=== PATIENT | male | born 1965 | race Caucasian/White ===

== ENCOUNTER 2024-06-17 10:03 | Day surgery (SDC) | payer SELFPAY, OTHER ==
[2024-06-17] VITALS (7 sets, daily range): BP systolic 113–163; BP diastolic 68–97; PULSE 53–61; RESP 16; TEMP 36.2–36.9; O2SAT 94–99; BMI 31.1
--- NOTE | 2024-06-17 10:41 | EKG12_ITS ---
Test Reason : P Blood Pressure : */* mmHG Vent. Rate : 57 BPM Atrial Rate : 57 BPM P-R Int : 164 ms QRS Dur : 104 ms QT Int : 410 ms P-R-T Axes : 7 10 16 degrees QTcB Int : 399 ms Sinus bradycardia Otherwise normal ECG No previous ECGs available Confirmed by AURELIANO COLORADO, ESPINOZA ([id number]), editorial specialist RANGEL ZUNIGA ([id number]) on 06/20/2024 6:25:24 AM Referred By: Jayjay Grubbs Confirmed By: ESPINOZA BEDOYA MD
--- NOTE | 2024-06-17 10:54 | PRE.ANES_ITS ---
ASA Classification* ASA Classification ASA Classification: 2 Assessment & Plan Anesthesia* Anesthesia Assessment Anesthesia Assessment: Discussed sedation and/or anesthesia options, risks, benefits, and alternatives with patient/parents/legal guardian/POA. Questions invited. The patient/parents/legal guardian/POA seems to understand and agrees to proceed with anesthesia plan. Reviewed the physical assessment, medical history, allergy history and patient home medications list prior to surgery/procedure/anesthetic and documented any changes. Performed airway and anesthesia risk assessments. 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 When Was Last Pacemaker Check QUESTION #4 FULL TEXT: You/Your Family Experience fever (hyperthermia) with Anesthesia Last Oral Intake Last Oral intake: Last Oral Intake NPO since Meds taken in AM with sips of water? Meds patient instructed to take am of surgery PONV PONV - battery assembler dry cell: PONV - battery assembler dry cell Female No 06/05/24 15:00 HX of Motion Sickness Yes 06/05/24 15:00 HX of N/V After Surgery No 06/05/24 15:00 Non-Smoker Yes 06/05/24 15:00 Duration of Surgery greater No 06/05/24 15:00 than 60 minutes Number of Risk Factors 2 06/05/24 15:00 PONV Score Moderate Risk 06/05/24 15:00 Height & Weight Height & Weight: Anesthesia: Height & Weight Height 5 ft 7 in 06/14/24 08:06 Weight: 90.265 kg 06/14/24 08:06 Respiratory Assessment Respiratory Assessment - battery assembler dry cell: Respiratory Tract Infection Hx - battery assembler dry cell Hx Respiratory Tract Infection No 06/05/24 15:00 STOP Sleep Apnea STOP Sleep Apnea - battery assembler dry cell: STOP Sleep Apnea - battery assembler dry cell Hx Hypertension No 06/05/24 15:00 Hx Sleep Apnea No 06/05/24 15:00 CPAP BIPAP Do you snore loudly (louder Yes 06/05/24 15:00 than talking or can be heard Do you often feel tired/ No 06/05/24 15:00 fatigued/ sleepy during daytime? Has anyone observed you stop No 06/05/24 15:00 breathing during sleep? STOP Results Negative 06/05/24 15:00 QUESTION #5 FULL TEXT : Do you snore loudly (louder than talking or can be heard through closed doors)? 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 Specify any problems Hx of Preganancy in last 3 N/A 06/05/24 15:00 Months Nurse Filling Out Transfusion DSCHRIBER 06/05/24 15:00 & Questions: Date: 06/05/24 06/05/24 15:00 Time: 15:02 06/05/24 15:00 Patient unable to answer at this time (ie. confused, unrespo /Reproduction History /Reproductive History - battery assembler dry cell: /Reproductive Hx- battery assembler dry cell Hx Now No 06/05/24 15:00 Gestational Age (in weeks): EDC: Hx Hx Para Hx Section SAB No 06/05/24 15:00 Active Medications Active Medications: Current Medications Generic Name Dose Route Start Last Admin Trade Name Freq PRN Reason Stop Dose Admin Cefazolin Sodium 2 gm/ N/A 20 mls @ 400 mls/hr 06/17/24 11:35 IV 06/17/24 11:37 PREOP ONE Sodium Chloride 1,000 mls @ 15 mls/hr 06/17/24 10:40 IV 06/22/24 23:59 .Q48H [facility] Medical History Wears glasses Alcohol use Heartburn Non-smoker Leg cramps Syncope History of stress test Umbilical hernia Home Medications ?Medication ?Instructions ?Recorded ?Last Taken ?Type NK 05/20/24 Unknown History Allergy/AdvReac Type Severity Reaction Status Date / Time No Known Allergies Allergy Verified 06/17/24 11:01 Surgical History No history of previous surgery Social History Smoking Status: Never smoker alcohol intake: never substance use type: does not use Review of Systems (Anesthesia) ROS Narrative System reviewed and no additional complaints, except as documented.
[2024-06-17] MEDS: 0.9% Normal Saline (1000mL) 1,000 ML 15 ML IV (11:11)
--- NOTE | 2024-06-17 11:12 | HP.PCM_ITS ---
History and Physical Date of Admission: 06/17/24 Intake Vital Signs 05/20/2407:54 Height 5 ft 7 in Weight: 199 lb 6 oz BMI 31.2 BP 132/82 H Blood Pressure Location Rt brachial Position Sitting Respiration 18 Pulse 61 Pulse Source Monitor Temp 97.9 F Temp Source Temporal Pulse Oximetry (%) 97 Oxygen Delivery Method room air Intake Visit Reasons: SELF REFERRED HERNIA Chief Complaint: self referred hernia Is patient in pain?: No Allergies No Known Allergies Allergy (Unverified 05/20/24 07:55) Medications ?Medication ?Instructions ?Recorded ?Confirmed ?Type NK 05/20/24 05/20/24 History PFSH Medical History (Updated 05/20/24 @ 09:[address] Jayjay Grubbs MD) Umbilical hernia Social History (Updated 05/20/24 @ 07:54 by Nishi Ulloa LPN) Smoking Status: Never smoker alcohol intake: never substance use type: does not use HPI HPI HPI: Patient is a 58-year-old male here with umbilical hernia has been there for 5 years. He reports it is growing larger and becoming more uncomfortable. He said he puts cotton balls and a roll of tape over to keep it inside. ROS General General: No weight change, appetite, fatigue, colon cancer, breast cancer or weakness HEENT HEENT: No difficulty swallowing, eye injury, eye surgery, swollen glands or hoarseness Endo Endocrine: No thyroid disease, diabetes mellitus, thyroid cancer, Hair loss, heat intolerance or cold intolerance Skin Skin: No rash or changing moles Musc Musculoskeletal: No back problems, arthritis, rheumatoid arthritis, gout or joint pain Cardio Cardiovascular: No murmur, pacemaker, heart disease, atrial fibrillation, high blood pressure, heart attack, heart stent, palpitations, shortness of breat with exertion or chest pain Psych Psychiatric: No depression, anxiety or hearing voices Resp Respiratory: No shortness of breath, No sleep apnea, No cough, No COPD, No asthma, No emphysema and No wheezing Gastro Gastrointestinal: No abdominal pain, No nausea or vomiting, No diarrhea, No constipation, No blood in stool, No acid reflux, No hemorrhoids, No ulcers, No gallbladder problem and No black,tarry stools [place] Hematologic: No blood thinners, No blood disorders, No bleeding, No anemia and No blood clots Neuro Neurologic: No numbness, No tingling and No weakness Exam Const General: cooperative Orientation: alert and oriented x3 HENMT Head: normal to inspection Neck Neck: normal visual inspection and full ROM Chest Chest palpation & inspection: normal inspection of the chest Resp Effort & Inspection: normal respiratory effort Auscultation: clear to auscultation bilaterally Cardio Rate: regular rate Rhythm: regular rhythm GI Inspection: non-distended Palpation: soft, hernia umbilical and nontender Skin General: no rashes or lesions noted Neuro General: patient alert and patient oriented x3 Extrem General: full ROM Psych Appearance: grossly normal Mental Status: mental status grossly normal Assessment and Plan Assessment and Plan (1) Umbilical hernia: Status: Acute Qualifiers: Obstruction and gangrene presence: without obstruction or gangrene Qualified Code(s): K42.9 - Umbilical hernia without obstruction or gangrene Plan: Patient has an umbilical hernia which is reducible. I discussed repairing this with mesh if it is over 1 cm. The patient is agreeable. I discussed the procedure in detail as well as the risk including but not limited to bleeding, infection, injury to underlying organs. Patient understands the risks and is willing to proceed. Jayjay Grubbs MD Pager: [facility] [address] [place] [address], [address] [place] [address] Office: I have examined the patient and the H&P has been reviewed. There are no clinical changes since date of exam.
[2024-06-17] MEDS: Cefazolin 2 GM in Syringe IV (11:28)
--- NOTE | 2024-06-17 11:35 | HERN_PTH ---
PATIENT: EVELIO DYKES LOC: [facility] [place] U#:[id number] AGE/SX: 58/M ROOM: RE06/17/[address]: Dr. Jayjay Grubbs MD : [id number] BED: DIS: 06/17/2024 SPEC #: [id number] RECD: 06/17/24 12:44 STATUS: MARYAN ZINA #: [id number] TEMI: 06/17/24 11:[address]: Jayjay Grubbs DEPT: SURGICAL PATHOLOGY RECD BY: Du Alexander ENTERED: 06/17/24 13:49 SP TYPE: Hernia OTHR DR: No Primary Care Phys Tissues: HERNIA Procedures: Surgery Specimen Level II HEADER OPERATION: Open umbilical hernia repair with mesh PRE-OP DIAGNOSIS: Umbilical hernia TISSUE SUBMITTED: Umbilical hernia sac MICROSCOPIC DIAGNOSIS Soft tissue of umbilical region, excision: Fibrofatty tissue consistent with hernia sac. AM.mr 06/18/2024 MICROSCOPIC DESCRIPTION Slides are reviewed. GROSS DESCRIPTION Received in fixative is one container labeled with the patient's name and designated Umbilical hernia sac. The specimen consists of a piece of pink soft tissue measuring 2.5 x 0.9 x 0.3cm. The specimen is bisected and submitted entirely in one cassette. 06/17/2024 TC:5 CPT:76406
[2024-06-17] MEDS: Bupivacaine Mpf 0.5% 30 ML VIAL (11:53)
--- NOTE | 2024-06-17 12:08 | PCM.OPRPT ---
Operative Report (Standard) Operative Information Date of Procedure: 06/17/24 Pre-Operative Diagnosis: Umbilical hernia less than 3 cm Post-Operative Diagnosis: Umbilical hernia Surgery/Procedure Performed: Umbilical hernia repair with mesh less than 3 cm sleep lab technician: Yes Broadcasting Equipment Mechanic: Nilton Das Tasks completed by assistant dean: Opening, Closing and Retracting Type of Anesthesia: General/Regional RN Documented Start/Stop Times: Operation Date: 06/17/24 11:35 Case Time Into Pre-Op 06/17/24 10:39 Out of Pre-Op 06/17/24 11:22 Anesthesia Start 06/17/24 11:26 Into Room 06/17/24 11:26 Procedure Start 06/17/24 11:40 Procedure End 06/17/24 12:08 Procedure Start Time: 11:40 Procedure Stop Time: 12:08 Select all DRAINS/GRAFTS/IMPLANTS that apply: Implanted device Implanted device details: Small Ventralex ST mesh Estimated Blood Loss: 5 Specimen collected: Yes Description of specimen(s) removed: Hernia sac Description of surgery: Patient was brought to the operating room and general anesthesia was induced. The abdomen was prepped and draped in usual sterile fashion. Curvilinear incision was marked superior to the umbilicus and then injected with local anesthetic. Incision was made with a scalpel and deepened to the umbilical stalk which was removed from the hernia sac. The hernia sac was dissected circumferentially and the hernia sac was removed from the fat. The fat was reduced. The fascia was grasped and elevated and the underlying preperitoneal area was dissected free circumferentially. Next a small Ventralex ST mesh was placed in the preperitoneal area and sutured to the anterior fascia using 2-0 PDS suture. The area was irrigated and suctioned dry. Next the fascia was closed with interrupted 0 Nurolon sutures. Next the incision was closed with interrupted 3-0 Vicryl sutures and a running 4-0 Monocryl suture. Steri-Strips and bandage were applied. Patient was taken to PACU in stable condition and tolerated the procedure well. Surgical Findings: Umbilical hernia Complications Complications: No Admit VTE Documentation VTE Mechan Device Prophylaxis: SCD's
--- NOTE | 2024-06-17 12:12 | DCINST_ITS ---
Discharge Instructions Procedure Hernia Diet Discharge Diet: Light diet - advance as tolerated Activity Discharge Activity: May Not Drive (for 2-3 days or while taking narcotic pain meds.) and May Shower (with the bandage in place 1-2 days after surgery.) Lifting Restrictions: 20 pounds for 4 weeks. Additional Activity Instructions:: Climbing stairs is fine, walking is encouraged. Sitting in bed may be uncomfortable. Sitting up using your lateral muscles (sitting up sideways) is usually more comfortable. Do not drive, work heavy equipment of sign legal documents for 24 hours. Pain medications may cause nausea, you should typically eat light foods as you take your pain medications. Pain medications may also cause constipation. If you have difficulty with this, discuss with your doctor. Alternate Tylenol and ibuprofen for pain control, oxycodone for breakthrough pain. Dressing / Incision Call your doctor if your incision/area has: Continuous Slow Oozing, Sudden Increased Bleeding, Increased Pain/ Swelling, Increased Redness and Foul Smelling Discharge Call your doctor if you observe: Fever of 101 or Higher Suture Line Care: Avoid Pulling/Pushing and Avoid Pinching/Bending Remove Dressing in: 2 days (Remove clear bandages in 2 days, remove Steri-Strips in 7 to 10 days.) Cleanse incision/area with: Soap & Water Follow Up Care Please Follow Up With: Jayjay Grubbs MD When: Please call to schedule 2 week follow up appointment. [phone] Test Results: Test results from this visit will be discussed in further detail at your follow- up appointment, if applicable. Discharge Plan Admission Attending Provider: Jayjay Grubbs Primary Care Provider: Care Physician,Raya Primary Instructions Print Language: Liberian Discharge Orders/Prescriptions Prescriptions: New oxycodone 5 mg Tablet 5 - 10 mg PO Q4H PRN PRN (Reason: Pain Score 4-10) 5 Days Qty: 14 0RF Referrals / Follow Up: Care Physician,Raya Primary [Primary Care Provider] - Disposition Disposition (needs filled in before D/C Order can be placed): Home, Self Care
--- NOTE | 2024-06-17 12:17 | PCM.POST.ANE ---
Anesthesia: Postop Eval I Current Vital Signs Temperature: 97.1 F Pulse Rate: 57 Blood Pressure: 113/81 Respiratory Rate: 16 Pulse Ox: 96 Assessment Airway patent: Yes Spontaneous unlabored respirations: Yes nausea: No Vomiting: No Anesthesia Complication: No Fluid Hydration Crystalloid volume administer (ml): 1,000 Total IV fluid infused: 1,000 Progress Note Anesthesia document: Postop Eval 1 completed: Yes
--- NOTE | 2024-06-17 12:18 | PCM.POSTANE2 ---
Anesthesia Postop Eval I Sum Postop Eval Completion status Anesthesia document: Postop Eval 1 completed: Yes Anesthesia Postop Eval I Summary Anesthesia Postop Eval I Summary: Anesthesia Postop Eval I: Assessment Summary Airway patent Yes 06/17/24 12:17 Spontaneous unlabored Yes 06/17/24 12:17 respirations Mental status nausea No 06/17/24 12:17 Vomiting No 06/17/24 12:17 Anesthesia Postop Eval I: Fluid Summary Crystalloid volume administer 1,000 06/17/24 12:17 (ml) Colloids volume administered ( ml) Blood Product volume administered (ml) Total IV fluid infused 1,000 06/17/24 12:17 Anesthesia Postop Eval I: Summary Notes Anesthesia Complication No 06/17/24 12:17 Anesthesia Complication Comment: Post-operative progress note Anesthesia: Postop Eval II Evaluation Mental status: Awake Pain Level: 0 nausea: No Vomiting: No
[2024-06-17] MEDS: Acetaminophen 325 MG Tablet 650 MG PO (12:52)
== END 2024-06-17 16:02 | disposition home or self-care (01) ==
LOC: SDC 10:11 → AC 11:10
PROVIDERS: Referring Provider Surgery; Visit Provider Surgery
PROC: (CPT 49591; principal; 2024-06-17 11:20)
DX: K42.9 Umbilical hernia without obstruction or gangrene (principal)
CPT/HCPCS: 49591; 00830; 88302; 93005; C1781; J2405